=== PATIENT | male | born 1985 | race Caucasian/White ===

== ENCOUNTER → 2020-07-14 | Day surgery (SDC) | payer BC ==
[~2020-07-14] MED LIST: LIDOCAINE 1% INJ-PF (10 MG/ML) 30 ML SDV ONE
--- NOTE | 2020-07-14 16:53 | RADIOLOGY REPORT (SQ) ---
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 TECHNIQUE: Right shoulder images acquired and stored on PACS. Oblique coronal, oblique sagittal, and axial imaging to include fat sensitive sequences as T1, water sensitive sequences as FST2/STIR, and contrast sensitive sequences as FST1. LIMITATIONS: None. FINDINGS: JOINT DISTENTION: Adequate distention for interpretation. BONE MARROW AND CORTEX: Normal. No significant osteophytes. No edema or defects. AC JOINT: Type II acromion. No bulky degenerative AC overgrowth. GLENOHUMERAL JOINT: No subluxation or dislocation. No focal chondral defects or reactive bone changes . ROTATOR CUFF: Intact without significant tendinopathy, partial or full-thickness tears. No peritendin itis. LABRUM AND BICEPS LABRAL COMPLEX: Probable type 2 lesion. Biceps tendon intact. INFERIOR LABRAL COMPLEX: Bony glenoid and labrum intact. IGHL intact without thickening or tear. No p aralabral cysts. ADJACENT SOFT TISSUES: No masses or nodes. OTHER: No other significant finding. IMPRESSION: 1. Superior labral tear is suggested, likely type 2. Biceps tendon intact. 2. Otherwise unremarkable MR arthrogram of the right shoulder. TECHNICAL DOCUMENTATION: JOB ID: [id number] 2010 [employer]- All Rights Reserved Reading location - IP/workstation name: [email or web address]
--- NOTE | 2020-07-14 17:19 | RADIOLOGY REPORT (SQ) ---
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 FLUOROSCOPY TIME: 0.2 minutes of fluoroscopy was used. 1 images saved to PACS. LIMITATIONS: None. PROCEDURE: Procedure, risks, benefits and alternatives explained to patient who then gave written co nsent. The right 2 shoulder was marked and a time out was called for correct procedure verification. Posterior entry site marked using fluoroscopic guidance. Shoulder prepped and draped using sterile technique. Local anesthesia achieved using 1% lidocaine injection. Hypodermic needle introduced int o the joint space under direct fluoroscopic visualization. Non-ionic contrast instilled to confirm in tra-articular position. Dilute gadolinium solution then injected. Needle removed and entry site cove red with sterile bandage. No immediate complications noted. TECHNIQUE: Digital images acquired during fluoroscopy and stored on PACS. Patient immediately take n to the MR suite for additional imaging. INJECTION LOCATION: Posterior right shoulder CONTRAST TYPE AND AMOUNT: 10 mL Prohance/Saline mixture. IMPRESSION: SUCCESSFUL NEEDLE PLACEMENT AND INJECTION FOR RIGHT SHOULDER MR ARTHROGRAM USING POSTERI OR APPROACH. COMMENT: Quality ID 145: Final reports for procedures using fluoroscopy that document radiation exp osure indices, or exposure time and number of fluorographic images (if radiation exposure indices are not available) TECHNICAL DOCUMENTATION: JOB ID: [id number] 2010 [employer]- All Rights Reserved Reading location - IP/workstation name: [email or web address] [id number]
--- NOTE | 2020-07-14 17:19 | RADIOLOGY REPORT (SQ) ---
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 FLUOROSCOPY TIME: 0.2 minutes of fluoroscopy was used. 1 images saved to PACS. LIMITATIONS: None. PROCEDURE: Procedure, risks, benefits and alternatives explained to patient who then gave written co nsent. The right 2 shoulder was marked and a time out was called for correct procedure verification. Posterior entry site marked using fluoroscopic guidance. Shoulder prepped and draped using sterile technique. Local anesthesia achieved using 1% lidocaine injection. Hypodermic needle introduced int o the joint space under direct fluoroscopic visualization. Non-ionic contrast instilled to confirm in tra-articular position. Dilute gadolinium solution then injected. Needle removed and entry site cove red with sterile bandage. No immediate complications noted. TECHNIQUE: Digital images acquired during fluoroscopy and stored on PACS. Patient immediately take n to the MR suite for additional imaging. INJECTION LOCATION: Posterior right shoulder CONTRAST TYPE AND AMOUNT: 10 mL Prohance/Saline mixture. IMPRESSION: SUCCESSFUL NEEDLE PLACEMENT AND INJECTION FOR RIGHT SHOULDER MR ARTHROGRAM USING POSTERI OR APPROACH. COMMENT: Quality ID 145: Final reports for procedures using fluoroscopy that document radiation exp osure indices, or exposure time and number of fluorographic images (if radiation exposure indices are not available) TECHNICAL DOCUMENTATION: JOB ID: [id number] 2010 [employer]- All Rights Reserved Reading location - IP/workstation name: [email or web address] [id number]
== END ==
LOC: RAD 14:41
PROVIDERS: ATTEND Family Medicine
DX: M67.811 Other specified disorders of synovium, right shoulder (principal)
CPT/HCPCS: 73222; 77002; 23350; A9576; J3490